=== PATIENT | female | born 1965 | race Asian ===

== ENCOUNTER 2018-08-06 18:57 | Emergency (ER) | payer BC, MEDICAID | END 2018-08-06 21:32 | disposition home or self-care (01) | LOC: FTE 21:32 | DX: N64.4 Mastodynia (principal); E11.9 Type 2 diabetes mellitus without complications; I10 Essential (primary) hypertension; Z79.84 Long term (current) use of oral hypoglycemic drugs | CPT/HCPCS: 76642; 99284-25 ==